=== PATIENT | female | born 1945 | race African-American/Black ===

== ENCOUNTER 2021-12-26 09:13 | Inpatient (IN) | payer OTHER ==
[~2021-12-26] VITALS: Ht 172.7 cm; Wt 88.9 kg
[2021-12-26] MEDS ORDERED: DEXTROSE IV STA (09:22)
[2021-12-26] MEDS ORDERED: SODIUM CHLORIDE IV STA (09:22)
--- NOTE | 2021-12-26 09:25 | NUR ---
IV LINE ESTABLISHED BLOOD DRAWN AND SENT TO LAB.
[2021-12-26] MEDS ORDERED: IV NS 0.9% 500 ML BAG IV ONE (09:30)
--- NOTE | 2021-12-26 09:30 | NUR ---
COVID SPECIMEN OBTAINED AND SENT TO LAB.
[2021-12-26] MEDS ORDERED: METF-881 PO (09:34)
[2021-12-26] MEDS ORDERED: INSU300I SQ (09:34)
[2021-12-26] MEDS ORDERED: DONE10TA44 PO (09:34)
[2021-12-26] MEDS ORDERED: ATOR10TA PO (09:34)
[2021-12-26] MEDS ORDERED: LISI-768 PO (09:34)
[2021-12-26] MEDS ORDERED: MEMA5TAB42 PO (09:34)
[2021-12-26] MEDS ORDERED: LEVO75TA99 PO (09:34)
[2021-12-26] MEDS ORDERED: CLON0.5T4 PO (09:34)
[2021-12-26] MEDS ORDERED: DULO20CA19 PO (09:34)
[2021-12-26] MEDS ORDERED: DULA1.5P SQ (09:34)
--- NOTE | 2021-12-26 09:41 | NUR ---
URINE COLLECTED AND SENT TO LAB
[2021-12-26 09:45] LABS: BASOPHILS # (AUTO) 0.1 K/uL (0.0-0.2); BASOPHILS % (AUTO) 0.8 % (0.0-2.0); EOSINOPHILS % (AUTO) 0.6 % (0.0-6.0); HEMATOCRIT 38 % (33-45); HEMOGLOBIN 12.5 g/dL (11.5-14.8); LYMPHOCYTES # (AUTO) 2.1 K/uL (0.8-4.8); LYMPHOCYTES % (AUTO) 23.3 % (20.0-44.0); MEAN CORPUSCULAR HGB CONC 33 g/dl (31.0-36.0); MEAN CORPUSCULAR VOLUME 90 fL (82-100); MONOCYTES # (AUTO) 0.4 K/uL (0.1-1.30); MONOCYTES % (AUTO) 4.8 % (2.0-12.0); NEUTROPHILS # (AUTO) 6.5 K/uL (1.8-8.9); NEUTROPHILS % (AUTO) 70.5 % (43.0-81.0); PLATELET COUNT (AUTO) 197 K/uL (150-450); RED BLOOD CELL COUNT(AUTO) 4.27 MIL/uL (4.0-5.2); WHITE BLOOD COUNT (AUTO) 9.2 K/uL (4.3-11.0)
[2021-12-26 10:00] LABS: SERUM AMMONIA 13 umol/L (11-32)
[2021-12-26] MEDS ORDERED: IV D5W 1,000 ML IV ONE (10:00)
--- NOTE | 2021-12-26 10:00 | NUR ---
ACCUCHECK READING 77. DR BETANCOURT MADE AWARE WITH NO NEW ORDERS.
[2021-12-26 10:03] LABS: CALCIUM, SERUM 9.4 mg/dL (8.5-10.1); CARBON DIOXIDE 26 mmol/L (21-32); CHLORIDE 105 mmol/L (98-107); CREATININE 0.9 mg/dL (0.6-1.3); POTASSIUM 3.9 mmol/L (3.5-5.1); SODIUM SERUM 140 mmol/L (136-145); UREA NITROGEN, BLOOD 13 mg/dL (7-18)
[2021-12-26 10:14] LABS: ALANINE AMINOTRANSFERASE 78 U/L (12-78); ALBUMIN 3.4 g/dL (3.4-5.0); ALCOHOL, BLOOD < 3 mg/dL (0-0); ALKALINE PHOSPHATASE 156 U/L (46-116); ASPARTATE AMINOTRANSFERASE 67 U/L (15-37); BILIRUBIN,TOTAL 0.2 mg/dL (0.2-1.0); TOTAL PROTEIN, SERUM 8.1 g/dL (6.4-8.2)
[2021-12-26 10:28] LABS: ACETAMINOPHEN 0 ug/ml (10-30)
[2021-12-26 10:53] LABS: GLUCOSE 26 mg/dL (74-106)
[2021-12-26 11:01] LABS: THYROID STIMULATING HORMONE 4.702 uIU/mL (0.358-3.74)
--- NOTE | 2021-12-26 11:05 | NUR ---
ACCUCHECK READING 55. DR BETANCOURT AWARE WITH NO NEW ORDER.
--- NOTE | 2021-12-26 11:37 | NUR ---
GOING TO 310.
--- NOTE | 2021-12-26 11:41 | NUR ---
ACCUCHECK READING IS 60. DR BETANCOURT AWARE WITH NO NEW ORDERS.
--- NOTE | 2021-12-26 11:50 | NUR ---
REPORT GIVEN TO NURSE AMBER FOR DONNA
[2021-12-26 11:57] LABS: BILIRUBIN,URINE NEGATIVE (NEGATIVE); COLOR,URINE YELLOW (YELLOW); LEUKOCYTE ESTERASE ,URINE NEGATIVE (NEGATIVE); NITRITE, URINE NEGATIVE (NEGATIVE); PH,URINE 5.5 (5.0-8.0); PROTEIN,URINE NEGATIVE (NEGATIVE); UGLUCOSE NEGATIVE (NEGATIVE); UROBILINOGEN,URINE 0.2 EU/dL (0.2)
--- NOTE | 2021-12-26 12:14 | NUR ---
THE PATIENT IS TRANSFERED TO ROOM 310 IN STABLE CONDITION AND PER ACLS POLICY.
--- NOTE | 2021-12-26 12:15 | NUR ---
MACHINE ADJUSTER LEADEREDUCATION CONSULTANT NOTE RECEIVED PATIENT VIA [facility]. PATIENT IS A/O X2 WITH EPISODES OF CONFUSION. PATIENT IS BREATHING EVENLY AND NONLABORED ON ROOM AIR. NO SIGNS OF DISTRESS NOTED. PATIENT DENIES PAIN OR DISCOMFORT. VITALS ARE BP 139/89 HR 97 RR 18 SPO2 99% ON ROOM AIR, TEMP 97.7. PATIENT IS PLACED ON TELE MONITORING. BLOOD SUGAR RECHECKED IS 76. PATIENT HAS IV ACCESS TO L HAND # 20 AND RAC # 20 BOTH PATENT AND INTACT. PATIENT HAS FC IN PLACE DRAINING CLEAR YELLOW URINE. PATIENT WAS ORIENTED TO THE ROOM AND BELONGINGS ACCOUNTED FOR. SAFETY MEASURES IN PLACE BED LOW LOCKED AND CALL LIGHT WITHIN REACH BED ALARM ON. WILL CONTINUE TO MONITOR
[2021-12-26] MEDS ORDERED: clonazePAM 0.5 MG TABLET PO PRN (13:30)
[2021-12-26] MEDS ORDERED: DEXTROSE 50%-WATER 50 ML DISP.SYRIN IV PRN (13:30)
[2021-12-26] MEDS ORDERED: IV D5W 1,000 ML IV PRN (15:00)
[2021-12-26 15:56] VITALS: BP 134/84
[2021-12-26] MEDS: MEMANTINE HCL 5 MG TABLET PO SCH (16:08)
[2021-12-26] MEDS: BLOOD SUGAR DIAGNOSTIC 1 EACH STRIP IN SCH ×2 (16:34→22:23)
[2021-12-26] MEDS: INSULIN REGULAR, HUMAN 100 UNIT/ML 3 ML VIAL SQ PRN ×2 (16:35→22:21)
--- NOTE | 2021-12-26 17:00 | NUR ---
RN NOTE PATIENTS BLOOD SUGAR NOTED @ 45, ORANGE JUICE AND D 50 GIVEN BLOOD SUGAR BACK TO 194. WILL CONTINUE TO MONITOR
--- NOTE | 2021-12-26 18:29 | NUR ---
KNITTING MACHINE MECHANIC CLOSING NOTE PATIENT IS A/O X2 WITH EPISODES OF CONFUSION. PATIENT IS BREATHING EVENLY AND NONLABORED ON ROOM AIR. NO SIGNS OF DISTRESS NOTED. PATIENT IS PLACED ON TELE MONITORING. BLOOD SUGAR RECHECKED IS 194 @ 1700. PATIENT HAS IV ACCESS TO L HAND # 20 AND RAC # 20 BOTH PATENT AND INTACT RUNNING D5W @ 75 ML/HR. PATIENT HAS FC IN PLACE DRAINING CLEAR YELLOW URINE. PATIENT REMINDED TO USE THE CALL LIGHT BEFORE GETTING OOB, VERBALIZED UNDERSTANDING. SAFETY MEASURES IN PLACE BED LOW LOCKED AND CALL LIGHT WITHIN REACH BED ALARM ON. WILL ENDORSE TO ONCOMING SHIFT
--- NOTE | 2021-12-26 19:20 | NUR ---
HEALTH SPECIALIST OPENING NOTES: RECEIVED PATIENT RESTING IN BED, AWAKE, A/O X 2. NO S/S OF DISTRESS NOTED. NO COMPLAIN OF PAIN. CALL LIGHT WITHIN REACH. BED ALARM ON. BED IN LOWEST AND LOCKED POSITION. ON TELE MONITOR WITH SINUS 96. WITH XAVIER CATHETER INTACT, DRAINING CLEAR YELLOW URINE.
[2021-12-26 20:00] VITALS: BP 125/99
[2021-12-26] MEDS: DONEPEZIL 5 MG TABLET PO SCH (21:38)
[2021-12-27] VITALS: BP 146/78
--- NOTE | 2021-12-27 00:25 | NUR ---
complained of bad headache,informed GENERAL FARMER Jami.
[2021-12-27 00:30] VITALS: BP 146/78
[2021-12-27] MEDS: ACETAMINOPHEN 325 MG TABLET PO PRN ×2 (00:47→09:10)
[2021-12-27 04:00] VITALS: BP 147/78
[2021-12-27] MEDS: BLOOD SUGAR DIAGNOSTIC 1 EACH STRIP IN SCH ×4 (06:58→21:59)
[2021-12-27] MEDS: INSULIN REGULAR, HUMAN 100 UNIT/ML 3 ML VIAL SQ PRN ×4 (07:01→22:02)
--- NOTE | 2021-12-27 07:04 | NUR ---
PATIENT PULLED HIS 2 IV.
--- NOTE | 2021-12-27 07:22 | NUR ---
FOUNDATION STAGE TEACHER OPENING NOTE PATIENT IS A/O X2 WITH EPISODES OF CONFUSION. PATIENT IS BREATHING EVENLY AND NONLABORED ON ROOM AIR. NO SIGNS OF DISTRESS NOTED. PATIENT IS PLACED ON TELE MONITORING. PATIENT HAS IV ACCESS TO L HAND # 20 AND RAC # 20 BOTH PATENT AND INTACT RUNNING D5W @ 75 ML/HR. PATIENT HAS FC IN PLACE DRAINING CLEAR YELLOW URINE. PATIENT REMINDED TO USE THE CALL LIGHT BEFORE GETTING OOB, VERBALIZED UNDERSTANDING. SAFETY MEASURES IN PLACE BED LOW LOCKED AND CALL LIGHT WITHIN REACH BED ALARM ON. WILL CONTINUE TO MONITOR
[2021-12-27] MEDS: LEVOTHYROXINE SODIUM 75 MCG TABLET PO SCH (08:21)
[2021-12-27] MEDS: MEMANTINE HCL 5 MG TABLET PO SCH ×2 (08:21→17:01)
[2021-12-27] MEDS: ATORVASTATIN 10 MG TABLET PO SCH (08:21)
[2021-12-27] MEDS: LISINOPRIL (5MG) 5 MG TABLET PO SCH (08:21)
[2021-12-27] MEDS: DULOXETINE HCL 20 MG CAPSULE.DR PO SCH (09:10)
--- NOTE | 2021-12-27 10:52 | NUR ---
RN NOTE PATIENT TRIES TO GET OOB WITHOUT ASSISTANCE, STATES SHE DOES NOT REMEMBER, BED ALARM ON. NOT REDIRECTABLE. PATIENT IS HIGH FALL RISK. PATIENT ALSO PULLED IV ACCESS X2. REINSERTED TO L FOREARM 20# GAUGE. NOTIFIED GAVE 1:1 SITTER ORDER
--- NOTE | 2021-12-27 12:00 | NUR ---
RN NOTE MD AT BEDSIDE SINCE BS 214, CAN HOLD D5 WATER BUT KEEP ORDER IN CASE
--- NOTE | 2021-12-27 12:23 | NUR ---
RN NOTE FAMILY AT BED SIDE BOTH FAMILY AND PATIENT REFUSED INSULIN, STATED IT DROPS LOW. WILL RECHECK AT DINNER
--- NOTE | 2021-12-27 17:04 | NUR ---
RN NOTE BS 172, HAD STANDING NOTE NOT TO GIVE INSULIN IF <200.
--- NOTE | 2021-12-27 18:23 | NUR ---
POWER CUTTING MACHINE OPERATOR CLOSING NOTE PATIENT IS A/O X2 WITH EPISODES OF CONFUSION. PATIENT IS BREATHING EVENLY AND NONLABORED ON ROOM AIR. NO SIGNS OF DISTRESS NOTED. PATIENT IS PLACED ON TELE MONITORING. PATIENT HAS IV ACCESS TO L FOREARM # 20 GAUGE PATENT AND MD KYREE STATED TO HOLD D5W @ THIS TIME. PATIENT HAS FC IN PLACE DRAINING CLEAR YELLOW URINE. PATIENT HAS SITTER AT BEDSIDE. SAFETY MEASURES IN PLACE BED LOW LOCKED AND CALL LIGHT WITHIN REACH BED ALARM ON. WILL ENDORSE TO ONCOMING SHIFT
--- NOTE | 2021-12-27 19:15 | NUR ---
MS RN OPENING NOTES: RECEIVED PATIENT RESTING IN BED, AWAKE, A/O X2, CONFUSED.NO S/S OF DISTRESS NOTED. NO COMPLAIN OF PAIN. CALL LIGHT WITHIN REACH. BED ALARM ON. BED IN LOWEST AND LOCKED POSITION. HOB ELEVATED. WITH XAVIER CATHETER INTACT, WITH CLEAR YELLOW URINE OUTPUT. WITH SITTER AT THE BEDSIDE.
[2021-12-27 20:00] VITALS: BP 137/75
[2021-12-27] MEDS: DONEPEZIL 5 MG TABLET PO SCH (21:35)
[2021-12-28] VITALS: BP 139/80
[2021-12-28] MEDS: INSULIN REGULAR, HUMAN 100 UNIT/ML 3 ML VIAL SQ PRN ×3 (06:38→17:12)
[2021-12-28] MEDS: BLOOD SUGAR DIAGNOSTIC 1 EACH STRIP IN SCH ×3 (06:38→17:11)
--- NOTE | 2021-12-28 07:23 | NUR ---
MEDICAL LABORATORY MANAGER NOTES PT IN BED, ASLEEP, EASY TO AROUSE, NO SIGN OF PAIN, NOT IN DISTRESS, F/C IN PLACE, CALL LIGHT WITHIN REACH, KEPT TEACHER DANCING BED.
[2021-12-28 08:00] VITALS: BP 135/85
[2021-12-28] MEDS: ATORVASTATIN 10 MG TABLET PO SCH (08:09)
[2021-12-28] MEDS: LEVOTHYROXINE SODIUM 75 MCG TABLET PO SCH (08:09)
[2021-12-28] MEDS: MEMANTINE HCL 5 MG TABLET PO SCH ×2 (08:09→17:19)
[2021-12-28] MEDS: LISINOPRIL (5MG) 5 MG TABLET PO SCH (08:09)
[2021-12-28] MEDS: DULOXETINE HCL 20 MG CAPSULE.DR PO SCH (08:09)
[2021-12-28] MEDS ORDERED: Insulin Glargine,Hum SQ (10:17)
[2021-12-28] MEDS ORDERED: INSU100V28 SQ (10:17)
[2021-12-28] MEDS: INSULIN GLARGINE, 100 UNIT/ML CARTRIDGE SQ SCH ×2 (11:25→17:10)
[2021-12-28 12:00] VITALS: BP 128/72
[2021-12-28 16:27] VITALS: BP 126/71
--- NOTE | 2021-12-28 18:23 | NUR ---
CUSTOMS MANAGER NOTES PT IN BED, ASLEEP, EASY TO AROUSE, VERBALLY RESPONSIVE, WITH CONFUSION, ASSISTED WITH MEALS, TURNED AND REPOSITIONED, SAFETY PRECAUTIONS OBSERVED, SEEN BY DR. WOLF, DISCHARGE ORDER GIVEN, DISCHARGE AND MEDICATION INSTRUCTIONS GIVEN TO DAUGHTER JANEE, VERBALIZED UNDERSTANDING, BELONGINGS ACCOUNTED FOR, REPORT GIVEN TO DEE SHARIF OF [facility], BANK APPRAISER TIME AROUND 7PM PER [facility], PT IN STABLE CONDITION.
--- NOTE | 2021-12-28 19:36 | NUR ---
BLOOD BANK TECHNOLOGIST NOTES PT PICKED UP BY 2 AMBULANCE PERSONNEL, LEFT VIA [facility] IN STABLE CONDITION, DAUGHTER JANEE INFORMED, APPRECIATED THE CALL.
== END 2021-12-28 19:35 | DRG 637 ==
LOC: ER 09:16 → TELE 11:40 → MED 12-27 10:52 → TELE 12-27 20:53
PROVIDERS: ATTEND Internal Medicine
DX: E11.649 Type 2 diabetes mellitus with hypoglycemia without coma (principal); G93.41 Metabolic encephalopathy; F03.90 Unspecified dementia, unspecified severity, without behavioral disturbance, psychotic disturbance, mood disturbance, and anxiety; F41.9 Anxiety disorder, unspecified; Z20.822 Contact with and (suspected) exposure to COVID-19; J45.909 Unspecified asthma, uncomplicated; Z79.4 Long term (current) use of insulin; Z79.84 Long term (current) use of oral hypoglycemic drugs; R74.8 Abnormal levels of other serum enzymes; R94.6 Abnormal results of thyroid function studies; T38.3X5A Adverse effect of insulin and oral hypoglycemic [antidiabetic] drugs, initial encounter; Y92.009 Unspecified place in unspecified non-institutional (private) residence as the place of occurrence of the external cause; E11.65 Type 2 diabetes mellitus with hyperglycemia
CPT/HCPCS: 36415; 70450-TC; 71045-TC; 80048-TC; 80076-TC; 82140-TC; 82962-TC; 83605-TC; 84443-TC; 84484-TC; 85025-TC; 85730-TC; 87040-TC; 87081-TC; 87086-TC; 97110-TC; 97112-TC; 97116-TC; 97530-TC; C9803; G0378; G0480; J1815; J3490; J7030; J7040; J7070

== ENCOUNTER 2022-01-17 15:22 | Inpatient (IN) | payer OTHER ==
[~2022-01-17] VITALS: Ht 162.6 cm; Wt 77.1 kg
[~2022-01-17 15:22] MED LIST: ATOR10TA PO; CLON0.5T4 PO; DONE10TA44 PO; DULA1.5P SQ; DULO20CA19 PO; INSU100V28 SQ; Insulin Glargine,Hum SQ; LEVO75TA99 PO; LISI-768 PO; MEMA5TAB42 PO; METF-881 PO
--- NOTE | 2022-01-17 15:28 | NUR ---
[id number] FOR GEN WEAKNESS. PT DC'D RECENTLY FROM SNF, NOT GETTING BETTER PER DAUGHTER. PT ALSO C/O RT ABD PAIN RADIATING TO THE BACK. BG 149, AAOX2, BREATHING EVEN AND NON LABORED, CONNECTED TO MONITOR, AWAITING MD BAKER
--- NOTE | 2022-01-17 16:05 | NUR ---
SALINE LOCK ESTABLISHED, BLOOD DRAWN AND SENT TO LAB
[2022-01-17 16:35] LABS: BASOPHILS % (AUTO) 0.5 % (0.0-2.0); EOSINOPHILS % (AUTO) 0.6 % (0.0-6.0); HEMATOCRIT 39 % (33-45); HEMOGLOBIN 12.8 g/dL (11.5-14.8); LYMPHOCYTES # (AUTO) 1.7 K/uL (0.8-4.8); LYMPHOCYTES % (AUTO) 19.5 % (20.0-44.0); MEAN CORPUSCULAR HGB CONC 33 g/dl (31.0-36.0); MEAN CORPUSCULAR VOLUME 90 fL (82-100); MONOCYTES # (AUTO) 0.6 K/uL (0.1-1.30); MONOCYTES % (AUTO) 7.4 % (2.0-12.0); NEUTROPHILS # (AUTO) 6.2 K/uL (1.8-8.9); PLATELET COUNT (AUTO) 210 K/uL (150-450); RED BLOOD CELL COUNT(AUTO) 4.36 MIL/uL (4.0-5.2); WHITE BLOOD COUNT (AUTO) 8.6 K/uL (4.3-11.0)
[2022-01-17 16:47] LABS: CALCIUM, SERUM 9.5 mg/dL (8.5-10.1); CARBON DIOXIDE 23 mmol/L (21-32); CHLORIDE 96 mmol/L (98-107); CREATININE 1.6 mg/dL (0.6-1.3); GLUCOSE 120 mg/dL (74-106); POTASSIUM 4.3 mmol/L (3.5-5.1); SODIUM SERUM 129 mmol/L (136-145); UREA NITROGEN, BLOOD 38 mg/dL (7-18)
[2022-01-17 16:52] LABS: ALANINE AMINOTRANSFERASE 17 U/L (12-78); ALKALINE PHOSPHATASE 103 U/L (46-116); ASPARTATE AMINOTRANSFERASE 17 U/L (15-37); BILIRUBIN,DIRECT 0.1 mg/dL (0.0-0.2); BILIRUBIN,TOTAL 0.2 mg/dL (0.2-1.0); TOTAL PROTEIN, SERUM 7.4 g/dL (6.4-8.2)
[2022-01-17] MEDS ORDERED: IV NS 0.9% 500 ML BAG IV ONE (18:00)
[2022-01-17] MEDS ORDERED: INSU100V28 SQ (18:09)
--- NOTE | 2022-01-17 18:13 | NUR ---
STILL UNABLE TO PROVIDE URINE
--- NOTE | 2022-01-17 18:37 | NUR ---
URINE COLLECTED AND SENT TO LAB
[2022-01-17 19:05] LABS: BILIRUBIN,URINE NEGATIVE (NEGATIVE); COLOR,URINE YELLOW (YELLOW); LEUKOCYTE ESTERASE ,URINE NEGATIVE (NEGATIVE); NITRITE, URINE NEGATIVE (NEGATIVE); PROTEIN,URINE NEGATIVE (NEGATIVE); UGLUCOSE NEGATIVE (NEGATIVE); UROBILINOGEN,URINE 0.2 EU/dL (0.2)
[2022-01-17 19:31] LABS: BACTERIA,URINE Many /HPF (None Seen); RBC,URINE 0-2 /HPF (0-2); SQUAMOUS EPITHELIAL CELL,UR Moderate /HPF (None Seen); WBC,URINE 0-2 /HPF (0-3)
--- NOTE | 2022-01-17 21:15 | NUR ---
REPORT GIVEN TO ELIANA
--- NOTE | 2022-01-17 21:18 | NUR ---
PT TRANSPORTED TO ROOM 117 VIA [facility] WITHOUT INCIDENT
[2022-01-17 21:20] VITALS: BP 116/60
--- NOTE | 2022-01-17 21:20 | NUR ---
FIRE PROTECTION DESIGNER NOTES: RECEIVED REPORT FROM ER NURSE MASON. PT ADMITTED FROM ER VIA STRETCHER, PLACE IN ROOM 117-1 COMFORTABLY. DIAGNOSIS OF ACUTE KIDNEY INJURY. PATIENT AWAKE, A/OX4 AND VERBALLY RESPONSIVE. ON ROOM AIR, O2 SAT 97% AND PT TOLERATED WELL. BREATHING EVEN AND UNLABORED. NO SOB NOTED. ABLE TO MAKE HER NEEDS. BODY ASSESSMENT DONE. NOTED SKIN DISCOLORATIONS ON BOTH LOWER ABDOMEN AREA. OTHERWISE SKIN INTACT. NO OPEN SKIN OR SKIN DISCOLORATION NOTED. IV ACCESS ON RT WRIST#20G INTACT AND PATENT. NO S/S OF INFILTRATIONS. PROVIDED GOOD SKIN CARE. NO C/O PAIN OR DISCOMFORT. NO ACUTE DISTRESS. COOPERATIVE WITH CARE. ALL SAFETY MEASURES IN PLACE. SIDE RAILS UP X2, BED IN LOWEST POSITION AND LOCKED. PLACE CALL LIGHT WITH IN REACH. WILL CONTINUE TO MONITOR
[2022-01-17] MEDS ORDERED: ZOLPIDEM TARTRATE 5 MG TABLET PO PRN (22:30)
[2022-01-17] MEDS ORDERED: ACETAMINOPHEN 325 MG TABLET PO PRN (22:30)
[2022-01-17] MEDS ORDERED: Z GUARD REMEDY 4 OZ OINT TP PRN (22:30)
[2022-01-17] MEDS ORDERED: INSULIN REGULAR, HUMAN 100 UNIT/ML 3 ML VIAL SQ PRN (22:30)
[2022-01-17] MEDS ORDERED: ONDANSETRON HCL/PF 4 MG/2 ML VIAL IVP PRN (22:30)
[2022-01-17] MEDS ORDERED: MAGNESIUM HYDROXIDE 30 ML UDC PO PRN (22:30)
[2022-01-17] MEDS ORDERED: MAG HYDROX/AL HYDROX/SIMETH 30 ML UDC PO PRN (22:30)
[2022-01-17] MEDS: IV NS 0.9% 1,000 ML IV SCH (22:36)
[2022-01-18 04:00] VITALS: BP_SYST 124; BP_SYST 148; BP_DIAS 61; BP_DIAS 70
--- NOTE | 2022-01-18 06:47 | NUR ---
RN CLOSING NOTES: PATIENT IN BED AWAKE, A/OX4 AND VERBALLY RESPONSIVE. ON ROOM AIR, O2 SAT 98% AND PT TOLERATED WELL. BREATHING EVEN AND UNLABORED. NO SOB NOTED. ABLE TO MAKE HER NEEDS. IV ACCESS ON RT WRIST#20G INTACT AND PATENT. NO S/S OF INFILTRATIONS. NS RUNNING AT 100CC/HR. NO C/O PAIN OR DISCOMFORT. NO ACUTE DISTRESS. COOPERATIVE WITH CARE. PROVIDED GOOD SKIN CARE. ALL SAFETY MEASURES IN PLACE. SIDE RAILS UP X2, BED IN LOWEST POSITION AND LOCKED. PLACE CALL LIGHT WITH IN REACH. WILL ENDORSE TO MORNING SHIFT NURSE.
[2022-01-18 06:59] LABS: BASOPHILS % (AUTO) 0.6 % (0.0-2.0); HEMATOCRIT 39 % (33-45); HEMOGLOBIN 12.7 g/dL (11.5-14.8); LYMPHOCYTES # (AUTO) 1.1 K/uL (0.8-4.8); LYMPHOCYTES % (AUTO) 15.7 % (20.0-44.0); MEAN CORPUSCULAR HGB CONC 32 g/dl (31.0-36.0); MEAN CORPUSCULAR VOLUME 92 fL (82-100); MONOCYTES # (AUTO) 0.5 K/uL (0.1-1.30); MONOCYTES % (AUTO) 7.9 % (2.0-12.0); NEUTROPHILS % (AUTO) 74.8 % (43.0-81.0); PLATELET COUNT (AUTO) 193 K/uL (150-450); RED BLOOD CELL COUNT(AUTO) 4.29 MIL/uL (4.0-5.2); WHITE BLOOD COUNT (AUTO) 6.7 K/uL (4.3-11.0)
[2022-01-18] MEDS ORDERED: DEXTROSE 50%-WATER 50 ML DISP.SYRIN IV PRN (07:30)
[2022-01-18 08:02] LABS: CREATININE 1.3 mg/dL (0.6-1.3); MAGNESIUM 1.9 mg/dL (1.8-2.4); PHOSPHORUS 2.9 mg/dL (2.5-4.9); POTASSIUM 4.6 mmol/L (3.5-5.1)
--- NOTE | 2022-01-18 08:09 | NUR ---
RN OPENING NOTE PATIENT RECEIVED IN BED, AO X 3-4, ABLE TO RESPONDS PHYSICAL STIMULI. IN NO ACUTE DISTRESS NOTED. RESPIRATORY EVEN AND UNLABORED ON ROOM AIR. SKIN IS WARM TO TOUCH, KEEP CLEAN/DRY, INTACT IV SITE. KEPT ELEVATED HOB FOR ENSURE AIRWAY AND ASPIRATION PRECAUTION, ALSO LOWEST POSITION OF THE BED, S/R UP X 3 FOR SAFETY. ALL SAFETY PRECAUTION APPLIED. CALL LIGHT WITHIN REACH, WILL CONTINUE TO MONITOR.
[2022-01-18] MEDS: MEMANTINE HCL 5 MG TABLET PO SCH ×2 (08:40→17:37)
[2022-01-18] MEDS: METFORMIN XR 500 MG TAB.SR.24H PO SCH (08:40)
[2022-01-18] MEDS: LEVOTHYROXINE SODIUM 75 MCG TABLET PO SCH (08:40)
[2022-01-18] MEDS: BLOOD SUGAR DIAGNOSTIC 1 EACH STRIP IN SCH ×4 (08:41→22:27)
[2022-01-18] MEDS: DULOXETINE HCL 20 MG CAPSULE.DR PO SCH (08:41)
[2022-01-18] MEDS: LISINOPRIL (5MG) 5 MG TABLET PO SCH (08:41)
[2022-01-18] MEDS: IV NS 0.9% 1,000 ML IV SCH ×2 (08:43→17:45)
[2022-01-18 12:00] VITALS: BP 121/59
[2022-01-18] MEDS: INSULIN REGULAR, HUMAN 100 UNIT/ML 3 ML VIAL SQ PRN ×2 (17:37→22:29)
--- NOTE | 2022-01-18 18:30 | NUR ---
RN CLOSE NOTE PATIENT IN BED, IN NO ACUTE DISTRESS OBSERVED. RESPIRATION EVEN AND UNLABORED ON ROOM AIR. SKIN IS WARM TO TOUCH KEEP CLEAN//DRY, INTACT IV SITE. KEPT ELEVATED HOB FOR ENSURE AIRWAY AND ASPIRATION PRECAUTION. ALSO LOWEST POSITION OF THE BED FOR SAFETY. CALL LIGHT WITHIN REACH, WILL CONTINUE TO MONITOR.
--- NOTE | 2022-01-18 19:30 | NUR ---
RN NOTE RECEIVED PT IN BED, A0X2. NOT IN ANY DISTRESS, TOLERATING RA, DENIES ANY SOB OR PAIN AT THIS TIME. PT IV ON R WRIST PATENT AND INTACT, NS RUNNING AT 100ML/HR. ALL SAFETY MEASURES IN PLACE PER PROTOCOL. WILL CONTINUE TO MONITOR.
[2022-01-18 20:00] VITALS: BP 92/54
[2022-01-18] MEDS: ATORVASTATIN 10 MG TABLET PO SCH (22:29)
[2022-01-18] MEDS: DONEPEZIL 5 MG TABLET PO SCH (22:29)
[2022-01-19] MEDS: IV NS 0.9% 1,000 ML IV SCH ×2 (03:42→13:36)
[2022-01-19 04:00] VITALS: BP 133/73
--- NOTE | 2022-01-19 06:56 | NUR ---
RN NOTE PT SLEEPING, AROUSES EASILY. NOT IN ANY DISTRESS. PT DENIES ANY PAIN. TOLERATED RA WITH O2SAT OF 96%. CONTINUE ON IVFLUIDS OF NS AT 100ML/HR, INFUSING WELL, NO S.SX OF INFILTRATION NOTED. REMAIN AFEBRILE. ALL NEEDS ATTENDED. WILL ENDORSE TO NEXT SHIFT NURSE FOR DONNA.
[2022-01-19 07:11] LABS: CALCIUM, SERUM 9.1 mg/dL (8.5-10.1); CREATININE 1.1 mg/dL (0.6-1.3); POTASSIUM 4.3 mmol/L (3.5-5.1)
[2022-01-19 07:20] LABS: BASOPHILS # (AUTO) 0.1 K/uL (0.0-0.2); BASOPHILS % (AUTO) 0.8 % (0.0-2.0); EOSINOPHILS % (AUTO) 1.6 % (0.0-6.0); HEMATOCRIT 39 % (33-45); HEMOGLOBIN 12.3 g/dL (11.5-14.8); LYMPHOCYTES # (AUTO) 1.7 K/uL (0.8-4.8); LYMPHOCYTES % (AUTO) 25.8 % (20.0-44.0); MEAN CORPUSCULAR HGB CONC 32 g/dl (31.0-36.0); MEAN CORPUSCULAR VOLUME 93 fL (82-100); MONOCYTES # (AUTO) 0.6 K/uL (0.1-1.30); MONOCYTES % (AUTO) 8.3 % (2.0-12.0); NEUTROPHILS # (AUTO) 4.2 K/uL (1.8-8.9); NEUTROPHILS % (AUTO) 63.5 % (43.0-81.0); PLATELET COUNT (AUTO) 192 K/uL (150-450); RED BLOOD CELL COUNT(AUTO) 4.19 MIL/uL (4.0-5.2); WHITE BLOOD COUNT (AUTO) 6.7 K/uL (4.3-11.0)
--- NOTE | 2022-01-19 07:27 | NUR ---
RN OPENING NOTE RECEIVED PATIENT AWAKE IN BED. A/O X 2-3. NO S/SX OF ACUTE DISTRESS NOTED. NO SOB. PT ON ROOM AIR, TOLERATING WELL WITH SATURATION 98%. BREATHING IS EVEN AND UNLABORED. IV ACCESS RWRIST#20 WITH NS 0.9% RUNNING AT 100MLS/HR. SAFETY MEASURES IN PLACE WITH BED LOCKED AT LOW POSITION AND SIDE RAILS UP X 2. CALL LIGHT IS WITHIN REACH. WILL CONTINUE TO MONITOR PATIENT THROUGHOUT SHIFT.
[2022-01-19] MEDS: BLOOD SUGAR DIAGNOSTIC 1 EACH STRIP IN SCH ×4 (07:39→22:11)
[2022-01-19] MEDS: INSULIN REGULAR, HUMAN 100 UNIT/ML 3 ML VIAL SQ PRN ×4 (08:15→22:11)
[2022-01-19] MEDS: DULOXETINE HCL 20 MG CAPSULE.DR PO SCH (08:16)
[2022-01-19] MEDS: LISINOPRIL (5MG) 5 MG TABLET PO SCH (08:17)
[2022-01-19] MEDS: MEMANTINE HCL 5 MG TABLET PO SCH ×2 (08:17→16:03)
[2022-01-19] MEDS: METFORMIN XR 500 MG TAB.SR.24H PO SCH (08:17)
[2022-01-19] MEDS: LEVOTHYROXINE SODIUM 75 MCG TABLET PO SCH (08:17)
[2022-01-19 12:00] VITALS: BP 141/59
--- NOTE | 2022-01-19 18:44 | NUR ---
RN CLOSING NOTE PATIENT IS AWAKE IN BED, TRANSFERRED TO ROOM 112. A/O X 3. NO S/SX OF ACUTE DISTRESS NOTED. NO SOB. ON ROOM AIR, TOLERATING WELL WITH SATURATION 98%. BREATHING IS EVEN AND UNLABORED. IV ACCESS RWRIST#20 WITH NS 0.9% RUNNING AT 100MLS/HR. ALL NEEDS MET THROUGHOUT SHIFT. SAFETY MEASURES IN PLACE WITH BED LOCKED AT LOW POSITION AND SIDE RAILS UP X 2. CALL LIGHT IS WITHIN REACH. WILL ENDORSE CONTINUITY OF CARE TO ONCOMING SHIFT.
--- NOTE | 2022-01-19 18:54 | NUR ---
RN NOTE PT C/O ITCHINESS ON UPPER AND LOWER BACK. DR. BAIRES MADE AWARE, AWAITING ORDERS.
[2022-01-19 20:00] VITALS: BP 116/64
--- NOTE | 2022-01-19 20:36 | NUR ---
RN OPENING NOTE RECEIVED CARE OF PATIENT WHILE PATIENT IN BED, A/O X3, ABLE TO VERBALIZE NEEDS. PATIENT IN NO DISCOMFORT OR EXPRESSING PAIN AT THIS TIME. PATIENT ON ROOM AIR BREATHING EVEN AND UNLABORED WITH O2 SAT 98%. NO SIGNIFICANT FINDINGS UPON INITIAL NURSING ASSESSMENTS. IV ACCESS R WRIST#20 WITH NS 0.9% RUNNING AT 100MLS/HR. SAFETY MEASURES IN PLACE WITH BED LOCKED AT LOW POSITION AND SIDE RAILS UP X 2. CALL LIGHT IS WITHIN REACH. WILL CONTINUE TO MONITOR PATIENT AND CARRY OUT ALL MD ORDERS.
[2022-01-19] MEDS: ATORVASTATIN 10 MG TABLET PO SCH (22:06)
[2022-01-19] MEDS: DONEPEZIL 5 MG TABLET PO SCH (22:06)
[2022-01-20] MEDS: IV NS 0.9% 1,000 ML IV SCH ×2 (00:21→10:12)
[2022-01-20 04:00] VITALS: BP 114/78
--- NOTE | 2022-01-20 06:27 | NUR ---
RN CLOSING NOTES WILL ENDORSE CARE OF PATIENT WHILE PATIENT IN BED, SLEEPING, WAKES TO NAME. A/O X4. ALL PATIENT NEEDS MET THROUGHOUT SHIFT. NO SIGNIFICANT FINDINGS UPON ALL NURSING ASSESSMENTS. ALL DUE MEDS GIVEN. SAFETY PRECAUTIONS IMPLEMENTED PER HOSPITAL PROTOCOLS. WILL ENDORSE TO AM NURSE FOR DONNA.
[2022-01-20 07:03] LABS: BASOPHILS % (AUTO) 0.7 % (0.0-2.0); EOSINOPHILS % (AUTO) 1.6 % (0.0-6.0); HEMATOCRIT 36 % (33-45); HEMOGLOBIN 11.6 g/dL (11.5-14.8); LYMPHOCYTES # (AUTO) 1.7 K/uL (0.8-4.8); LYMPHOCYTES % (AUTO) 27.9 % (20.0-44.0); MEAN CORPUSCULAR HGB CONC 33 g/dl (31.0-36.0); MEAN CORPUSCULAR VOLUME 92 fL (82-100); MONOCYTES # (AUTO) 0.5 K/uL (0.1-1.30); MONOCYTES % (AUTO) 7.6 % (2.0-12.0); NEUTROPHILS # (AUTO) 3.8 K/uL (1.8-8.9); NEUTROPHILS % (AUTO) 62.2 % (43.0-81.0); PLATELET COUNT (AUTO) 186 K/uL (150-450); RED BLOOD CELL COUNT(AUTO) 3.89 MIL/uL (4.0-5.2); WHITE BLOOD COUNT (AUTO) 6.1 K/uL (4.3-11.0)
[2022-01-20 07:23] LABS: ALBUMIN 2.4 g/dL (3.4-5.0); BILIRUBIN,TOTAL 0.3 mg/dL (0.2-1.0); CALCIUM, SERUM 8.9 mg/dL (8.5-10.1); MAGNESIUM 1.5 mg/dL (1.8-2.4); PHOSPHORUS 2.9 mg/dL (2.5-4.9); POTASSIUM 4.1 mmol/L (3.5-5.1)
--- NOTE | 2022-01-20 07:25 | NUR ---
RN OPENING NOTE PATIENT RECEIVED IN BED, AWAKE, A&OX3. PATIENT ON ROOM AIR WITH NO SIGNS OF LABORED BREATHING AT THIS TIME. RIGHT HAND 22G IN PLACE RUNNING NS AT 100CC/HR. NO SIGNS OF ACUTE DISTRESS NOTED AT THIS TIME. BED LOCKED AND IN LOWEST POSITION, CALL LIGHT WITHIN REACH, 3 SIDE RAILS UP. WILL CONTINUE TO MONITOR.
[2022-01-20] MEDS: BLOOD SUGAR DIAGNOSTIC 1 EACH STRIP IN SCH ×2 (07:45→11:50)
[2022-01-20 08:00] VITALS: BP 121/67
[2022-01-20] MEDS: LISINOPRIL (5MG) 5 MG TABLET PO SCH (08:21)
[2022-01-20] MEDS: DULOXETINE HCL 20 MG CAPSULE.DR PO SCH (08:21)
[2022-01-20] MEDS: METFORMIN XR 500 MG TAB.SR.24H PO SCH (08:21)
[2022-01-20] MEDS: MEMANTINE HCL 5 MG TABLET PO SCH (08:21)
[2022-01-20] MEDS: LEVOTHYROXINE SODIUM 75 MCG TABLET PO SCH (08:21)
[2022-01-20] MEDS: INSULIN REGULAR, HUMAN 100 UNIT/ML 3 ML VIAL SQ PRN ×2 (08:22→13:15)
[2022-01-20] MEDS ORDERED: MAGNESIUM OXIDE 400 MG TABLET PO ONE (10:00)
--- NOTE | 2022-01-20 14:12 | NUR ---
RN NOTE REPORT GIVEN TO DEE SHARIF AT [facility].
[2022-01-20 16:00] VITALS: BP 116/70
--- NOTE | 2022-01-20 16:51 | NUR ---
RN NOTE PATIENT DISCHARGED ORDER. PATIENT MEDICALLY STABLE AT TIME OF DISCHARGE. REPORT GIVEN TO DEE SHARIF AT [facility]. PATIENT LEFT FACILITY VIA AMBULANCE. IV REMOVED.
== END 2022-01-20 16:45 | DRG 640 ==
LOC: ER 15:25 → MEDSG1 20:54
PROVIDERS: ADMIT Family Medicine
DX: E86.9 Volume depletion, unspecified (principal); N17.0 Acute kidney failure with tubular necrosis; G93.41 Metabolic encephalopathy; E44.1 Mild protein-calorie malnutrition; E87.1 Hypo-osmolality and hyponatremia; R62.7 Adult failure to thrive; Z20.822 Contact with and (suspected) exposure to COVID-19; E78.5 Hyperlipidemia, unspecified; E03.9 Hypothyroidism, unspecified; F03.90 Unspecified dementia, unspecified severity, without behavioral disturbance, psychotic disturbance, mood disturbance, and anxiety; E11.65 Type 2 diabetes mellitus with hyperglycemia; E88.09 Other disorders of plasma-protein metabolism, not elsewhere classified; F32.A Depression, unspecified; I10 Essential (primary) hypertension
CPT/HCPCS: 36415; 70450-TC; 71045-TC; 80048-TC; 80053-TC; 80061-TC; 80076-TC; 81001; 82962-TC; 83735-TC; 84100-TC; 84134-TC; 84484-TC; 85025-TC; 87081-TC; 87086-TC; 97116-TC; 97530-TC; C9803; G0378; J1815; J7030; J7040